=== PATIENT | female | born 1965 | race Caucasian/White ===

== ENCOUNTER 2016-08-22 18:38 | Emergency (ER) | payer MEDICAID ==
[2016-08-22 19:08] VITALS: BP 121/72
[2016-08-22] MEDS ORDERED: Ketorolac 60 MG/2 ML SDV IM ONE (19:33)
--- NOTE | 2016-08-22 19:40 | EDM.PDOC ---
ED HPI GENERAL MEDICAL PROBLEM - General Chief Complaint: Back Pain or Injury Stated Complaint: BACK HURTS NOT AN ACCIDENT Time Seen by Provider: 08/22/16 19:09 Source of Information: Reports: Patient History Limitations: Reports: No limitations - History of Present Illness INITIAL COMMENTS - FREE TEXT/NARRATIVE: back pain x3 days: this is a 50 rear old presents emergency room for evaluation of back pain. She reports 3 days ago woke up with pain in her low back does not radiate to the legs. Today pain and muscle spasms were severe that she had difficulty moving. she is currently complaining inpatient treatment [facility] for alcohol addiction. Onset: gradual Duration: Day(s): (3) Location: Reports: back Quality: Reports: Sharp (Muscle spasm) Severity: severe Improves with: Reports: Rest Worsens with: Reports: Movement Associated Symptoms: Reports: denies other symptoms - Related Data Allergies Allergy/AdvReac Type Severity Reaction Status Date / Time IVP DYE Allergy Swelling Uncoded 08/22/16 19:08 Home Meds: Home Meds Citalopram Hydrobromide [Celexa] 08/22/16 [History] Insulin Detemir [Levemir] 08/22/16 [History] metFORMIN [Glucophage] 08/22/16 [History] Past Medical History Musculoskeletal History: Reports: Neck pain, chronic Endocrine/Metabolic History: Reports: Diabetes, type II - Past Surgical History Female Surgical History: Reports: section Social & Family History - Tobacco Use Smoking Status *Q: Current Every Day Smoker Years of Tobacco use: 35 Packs/Tins Daily: 1 ED ROS GENERAL - Review of Systems Review Of Systems: See Below Constitutional: Reports: no symptoms HEENT: Reports: No symptoms Respiratory: Reports: Wheezing (Smoker) Cardiovascular: Reports: No symptoms Endocrine: Reports: high glucose (Diabetes with long acting insulin 20 in a.m. and 35 in Pm, diabetes since 2000) GI/Abdominal: Reports: No symptoms : Reports: no symptoms Musculoskeletal: Reports: back pain Skin: Reports: no symptoms Neurological: Reports: No Symptoms Psychiatric: Reports: No symptoms Hematologic/Lymphatic: Reports: no symptoms Immunologic: Reports: no symptoms ED EXAM, GENERAL - Physical Exam Exam: See Below Exam Limited By: No limitations General Appearance: alert, WD/WN, no apparent distress Eye Exam: bilateral eye: normal inspection Ears: normal external exam Nose: normal inspection Throat/Mouth: Normal lips Head: atraumatic, normocephalic Neck: full range of motion Respiratory/Chest: no respiratory distress, no accessory muscle use, chest non- tender, wheezing Cardiovascular: regular rate, rhythm, no edema, no murmur GI/Abdominal: normal bowel sounds, soft, non tender (Female) Exam: Deferred Rectal (Female) Exam: Deferred Back Exam: normal inspection, muscle spasm (Low back does not radiate to her hips or legs) Extremities: normal inspection, normal range of motion, non-tender, no pedal edema, other (Patellar reflexes 2+ bilateral) Neurological: alert, oriented, normal cognition, normal gait Psychiatric: normal affect, normal mood Skin Exam: Warm, Dry, Intact, Normal color, No rash Lymphatic: no adenopathy Course - Vital Signs Last Recorded V/S: Last Vital Signs Temp 36.7 C 08/22/16 19:16 Pulse 80 08/22/16 19:16 Resp 20 08/22/16 19:16 BP 121/72 08/22/16 19:16 Pulse Ox 98 08/22/16 19:16 - Orders/Labs/Meds Labs: Laboratory Tests 08/22/16 Range/Units 19:23 Urine Color Yellow Urine Appearance Clear Urine pH 6.0 (4.5-8.0) Ur Specific Sarah Ann 1.015 (1.008-1.030) Urine Protein Negative (NEGATIVE) mg/dL Urine Glucose (UA) 1000 H (NEGATIVE) mg/dL Urine Ketones Negative (NEGATIVE) mg/dL Urine Occult Blood Negative (NEGATIVE) Urine Nitrite Negative (NEGATIVE) Urine Bilirubin Negative (NEGATIVE) Urine Urobilinogen Normal (NORMAL) mg/dL Ur Leukocyte Esterase Negative (NEGATIVE) Urine RBC 0-5 (0-5) Urine WBC 0-5 (0-5) Ur Epithelial Cells Rare Amorphous Sediment Not seen Urine Bacteria Few Urine Mucus Not seen Meds: Medications Discontinued Medications Generic Name Dose Route Start Last Admin Trade Name Freq PRN Reason Stop Dose Admin Ketorolac Tromethamine 60 mg 08/22/16 19:33 Toradol IM 08/22/16 19:34 ONETIME ONE - Re-Assessments/Exams Free Text/Narrative Re-Assessment/Exam: 08/22/16 19:46 Given Toradol 60 mg IM in the emergency room Will plan to discharge back to [facility] with medication Departure - Departure Time of Disposition: 19:47 Disposition: Home, Self-Care 01 Condition: good Clinical Impression: Acute low back pain Qualifiers: Back pain laterality: midline Sciatica presence: without sciatica Qualified Code(s): M54.5 - Low back pain Referrals: PCP,None [Primary Care Provider] - Forms: ED Department Discharge Care Plan Goals: acute low back pain -Toradol 60 mg IM given in the ER -Home medication; tramadol 50 mg one to 2 every 6-8 as needed for acute pain Flexeril 10 mg every 8 hours as needed for muscle spasm May use [id number] Tylenol or Motrin as directed for less acute pain Advise no bending lifting or twisting for the next 3-5 days followup with primary care for a recheck in 5-7 days if not improved Return to ER for any acute pain are not improved - Problem List & Annotations (1) Acute low back pain SNOMED Code(s): 493276184 Code(s): M54.5 - LOW BACK PAIN Status: Acute Priority: High Current Visit: Yes Qualifiers: Back pain laterality: midline Sciatica presence: without sciatica Qualified Code(s): M54.5 - Low back pain - Problem List Review Problem List Initiated/Reviewed/Updated: Yes - Assessment/Plan Plan: acute low back pain -Toradol 60 mg IM given in the ER -Home medication; tramadol 50 mg one to 2 every 6-8 as needed for acute pain #15 Flexeril 10 mg every 8 hours as needed for muscle spasm#15 May use [id number] Tylenol or Motrin as directed for less acute pain Advise no bending lifting or twisting for the next 3-5 days followup with primary care for a recheck in 5-7 days if not improved Return to ER for any acute pain are not improved
== END 2016-08-22 20:10 | disposition home or self-care (01) ==
LOC: JP.ED 18:38
DX: M54.5 Low back pain (principal); E11.9 Type 2 diabetes mellitus without complications; F17.210 Nicotine dependence, cigarettes, uncomplicated; Z98.890 Other specified postprocedural states; Z79.4 Long term (current) use of insulin; Z79.899 Other long term (current) drug therapy; Z91.041 Radiographic dye allergy status
CPT/HCPCS: 81001; 96372; 99284; J1885